=== PATIENT | female | born 1995 | race Caucasian/White ===

== ENCOUNTER 2017-01-19 17:12 | Emergency (ER) | payer BC, OTHER ==
[2017-01-19 17:23] VITALS: BP 116/80
--- NOTE | 2017-01-19 18:26 | RAD ---
INDICATION: Right hand injury COMPARISON: None TECHNIQUE: AP, lateral, and oblique views were obtained. FINDINGS: The bony structures, joint spaces, and soft tissues are normal for age. IMPRESSION: NEGATIVE EXAMINATION.
--- NOTE | 2017-01-19 18:36 | UC ---
Hand/Wrist HPI - HPI Summary HPI Summary: YESTERDAY TWISTED RIGHT HAND TAKING MATS FROM WASHER; PAIN SINCE INJURY TO FIFTH METACARPAL. - History Of Current Complaint Chief Complaint: UCUpperExtremity Stated Complaint: RIGHT HAND INJURY Time Seen by Provider: 01/19/17 17:30 Hx Obtained From: Patient Hx Last Menstrual Period: 12/17/16 Onset/Duration: Sudden Onset, Lasting Days, Still Present Severity Initially: Mild Severity Currently: Mild Character Of Pain: Dull, Aching Aggravating Factor(s): Movement, Lifting, Flexion, Extension Alleviating: Rest, Ice Associated Signs And Symptoms: Positive: Swelling. Negative: Redness, Bruising , Fever, Weakness, Numbness/Tingling Related History: Dominant Hand Right - Allergies/Home Medications Allergies/Adverse Reactions: Allergies Allergy/AdvReac Type Severity Reaction Status Date / Time Amoxicillin Allergy Intermediate Hives Verified 01/19/17 17:23 SEASONAL Allergy Intermediate POST NASAL Uncoded 01/19/17 17:23 DRIP PMH/Surg Hx/FS Hx/Imm Hx Previously Healthy: Yes Other History Of: Negative For: HIV, Hepatitis B, Hepatitis C, Anticoagulant Therapy - Surgical History Surgical History: Yes Surgery Procedure, Year, and Place: T & A, TUBES EARS, MOUTH CYST REMOVED. WISDOM TEETH EXRACTIONS. - Family History Known Family History: Positive: Cardiac Disease, Hypertension - Social History Occupation: Student Lives: With Family Alcohol Use: Occasionally Substance Use Type: None Smoking Status (MU): Never Smoked Tobacco Review of Systems Constitutional: Negative Skin: Negative Eyes: Negative ENT: Negative Respiratory: Negative Cardiovascular: Negative Gastrointestinal: Negative Genitourinary: Negative Motor: Negative Neurovascular: Negative Musculoskeletal: Arthralgia, Myalgia Neurological: Negative Psychological: Negative Is Patient Immunocompromised?: No All Other Systems Reviewed And Are Negative: Yes Physical Exam Triage Information Reviewed: Yes Appearance: Well-Appearing, No Pain Distress, Well-Nourished Vital Signs: Initial Vital Signs Temp 98.8 F 01/19/17 17:16 Pulse 84 01/19/17 17:16 Resp 16 01/19/17 17:16 BP 116/80 01/19/17 17:16 Pulse Ox 100 01/19/17 17:16 Vital Signs Reviewed: Yes Eye Exam: Normal ENT Exam: Normal Dental Exam: Normal Neck exam: Normal Neck: Positive: Supple, Nontender, No Lymphadenopathy Respiratory Exam: Normal Respiratory: Positive: Chest non-tender, Lungs clear, Normal breath sounds, No respiratory distress, No accessory muscle use Cardiovascular Exam: Normal Cardiovascular: Positive: RRR, No Murmur, Pulses Normal Abdominal Exam: Normal Musculoskeletal: Positive: Strength Intact, ROM Intact, Edema @ - RIGHT FIFTH METACARPAL, Other: - TENDER RIGHT FIFTH METACARPAL Neurological Exam: Normal Psychological Exam: Normal Skin Exam: Normal Hand/Wrist Course/Dx - Differential Dx/Diagnosis Differential Diagnosis/HQI/PQRI: Fracture, Sprain, Strain Provider Diagnoses: RIGHT HAND SPRAIN/CONTUSION Discharge - Discharge Plan Condition: Stable Disposition: HOME Patient Education Materials: Contusion in Adults (ED), Hand Sprain (ED) Referrals: [facility] [place] [facility] [Outside] Sofiya Rodríguez MD [Primary Care Provider] -
== END 2017-01-19 18:38 | disposition home or self-care (01) ==
LOC: UCCORT 17:12
DX: S63.91XA Sprain of unspecified part of right wrist and hand, initial encounter (principal); S60.221A Contusion of right hand, initial encounter; X50.0XXA Overexertion from strenuous movement or load, initial encounter; Y93.E2 Activity, laundry; Y92.9 Unspecified place or not applicable
CPT/HCPCS: 99212; G0463